=== PATIENT | male | born 1935 | race Caucasian/White ===

== ENCOUNTER 2017-06-06 17:51 | Observation (INO) | payer OTHER ==
[~2017-06-06] VITALS: Ht 160 cm; Wt 85.7 kg
[2017-06-06 18:28] LABS: HEMATOCRIT 34.6 % (38.0-50.0); HEMOGLOBIN 11.4 G/DL (12.5-16.6); MCH 30.5 PG (29.0-34.0); MCHC 32.9 G/DL (30.0-36.0); MCV 92.5 FL (86-99); PLATELET COUNT 202 K/uL (156-360); RBC DIS.WIDTH-CV 18.9 % (11.8-14.6); RBC DIS.WIDTH-SD 64.2 % (39-53); RED BLOOD COUNT 3.74 M/uL (4.00-5.50); WHITE BLOOD COUNT 7.3 K/uL (4.1-10.2)
[2017-06-06 18:51] LABS: TROP-I INTERPRETATION NEGATIVE; TROPONIN-I 0.02 ng/mL (0.0-0.30)
[2017-06-06 18:58] LABS: CHLORIDE 106 MEQ/L (99-109); CREATININE 1.5 MG/DL (0.6-1.3); GFR ESTIMATE (CALCULATED) 48 mL/min/ (58.99-99999); GLUCOSE 148 mg/dL (70-99); POTASSIUM 4.3 MEQ/L (3.7-5.4); SODIUM 144 MEQ/L (136-147); UREA NITROGEN (BUN) 21 mg/dL (9-23)
[2017-06-07 00:23] LABS: APPEARANCE SL.HAZY ((CLEAR)); BILIRUBIN NEGATIVE; BLOOD NEGATIVE; COLOR YELLOW ((YELLOW)); GLUCOSE (STRIP) NEGATIVE; KETONES NEGATIVE; LEUKOCYTES NEGATIVE; NITRITE NEGATIVE; PROTEIN (STRIP) NEGATIVE; SPECIFIC GRAVITY 1.017 (1.000-1.030); UROBILINOGEN 0.2 MG/DL (0.2-1.0)
[2017-06-07 00:34] LABS: BACTERIA RARE /HPF; EPITHELIAL CELLS RARE /HPF; HYALINE CASTS 0-5 /LPF; MUCUS TRACE /LPF; RED BLOOD CELLS 0-5 /HPF (0-5); UCUL ADDED? NO; WHITE BLOOD CELLS 0-5 /HPF (0-5)
[2017-06-07 00:42] LABS: MAGNESIUM 1.8 mg/dL (1.3-2.7)
[2017-06-07 00:47] LABS: PHOSPHORUS 3.5 mg/dL (2.5-4.9)
[2017-06-07 00:52] LABS: TROP-I INTERPRETATION NEGATIVE; TROPONIN-I 0.03 ng/mL (0.0-0.30)
[2017-06-07 01:15] VITALS: BP 163/82
[2017-06-07 07:10] LABS: BASOPHIL (%) 0.5 % (0-1); EOSINOPHIL (%) 4.4 % (0-5); EOSINOPHIL COUNT 0.3 K/uL (0-0.3); HEMATOCRIT 35.4 % (38.0-50.0); HEMOGLOBIN 11.4 G/DL (12.5-16.6); IMMATURE GRANULOCYTE (%) 0.5 % (0.0-0.7); LYMPHOCYTE (%) 11.8 % (15-42); LYMPHOCYTE COUNT 0.7 K/uL (1.0-2.8); MCH 30.2 PG (29.0-34.0); MCHC 32.2 G/DL (30.0-36.0); MCV 93.9 FL (86-99); MONOCYTE (%) 8.8 % (3-12); MONOCYTE COUNT 0.5 K/uL (0-0.8); NEUTROPHIL COUNT 4.4 K/uL (1.8-6.4); PLATELET COUNT 191 K/uL (156-360); RBC DIS.WIDTH-CV 19.3 % (11.8-14.6); RBC DIS.WIDTH-SD 67.1 % (39-53); RED BLOOD COUNT 3.77 M/uL (4.00-5.50); WHITE BLOOD COUNT 5.9 K/uL (4.1-10.2)
[2017-06-07 07:29] LABS: TROP-I INTERPRETATION NEGATIVE; TROPONIN-I 0.04 ng/mL (0.0-0.30)
[2017-06-07 07:31] LABS: ALBUMIN 3.3 G/DL (3.2-4.8); ALKALINE PHOSPHATASE 266 IU/L (3-129); ALT (GPT) 394 IU/L (3-49); AST (GOT) 234 IU/L (2-34); CHLORIDE 110 MEQ/L (99-109); CREATININE 1.3 MG/DL (0.6-1.3); DIRECT BILIRUBIN 0.2 mg/dL (0.0-0.3); GFR ESTIMATE (CALCULATED) 56 mL/min/ (58.99-99999); POTASSIUM 4.2 MEQ/L (3.7-5.4); SODIUM 141 MEQ/L (136-147); TOTAL BILIRUBIN 0.5 MG/DL (0.0-1.0); TOTAL PROTEIN 5.6 G/DL (6.4-8.3); UREA NITROGEN (BUN) 19 mg/dL (9-23)
[2017-06-07 07:43] LABS: GLUCOSE 106 mg/dL (70-99)
[2017-06-07 07:46] VITALS: BP 183/84
[2017-06-07 10:15] VITALS: BP 138/63
[2017-06-07 12:10] VITALS: BP 141/68
[2017-06-07 17:24] VITALS: BP 148/75
[2017-06-08 00:54] VITALS: BP 179/83
[2017-06-08 03:18] VITALS: BP 146/65
[2017-06-08 08:04] VITALS: BP 167/76
[2017-06-08] MEDS ORDERED: TYLENOL REGULA325 MG PO (09:48)
[2017-06-08] MEDS ORDERED: NORVASC2.5 MG PO (09:49)
[2017-06-08] MEDS ORDERED: ATORVASTATIN CA40 MG PO (09:50)
[2017-06-08] MEDS ORDERED: ASPERCREME1 EACH TP (09:50)
[2017-06-08] MEDS ORDERED: TUMS500 MG PO (09:51)
[2017-06-08] MEDS ORDERED: PLAVIX75 MG PO (09:52)
[2017-06-08] MEDS ORDERED: CLARITIN,ALAVAR10 MG PO (09:52)
[2017-06-08] MEDS ORDERED: FOLIC ACID1 MG PO (09:53)
[2017-06-08] MEDS ORDERED: IRON325 M1 PO (09:53)
[2017-06-08] MEDS ORDERED: METOPROLOL SUCC25 MG PO (09:54)
[2017-06-08] MEDS ORDERED: FUROSEMIDE20 MG PO (09:54)
[2017-06-08] MEDS ORDERED: MILK OF MAGN PO (09:57)
[2017-06-08] MEDS ORDERED: MIRTAZAPINE7.5 MG PO (09:57)
[2017-06-08] MEDS ORDERED: ENDOCET 5-3251 EACH PO (11:21)
[2017-06-08] MEDS ORDERED: SENEXON-S TABL1 EACH PO (11:28)
[2017-06-08 11:44] VITALS: BP 141/75
[2017-06-08 12:28] VITALS: BP 121/66
== END 2017-06-08 13:19 ==
LOC: EME 17:51 → EDOF 21:34 → 5WEST 21:34 → EDOF 21:34 → ENRESERV 21:37 → 5WEST 06-07 01:13
PROVIDERS: Hospitalist
DX: S22.42XA Multiple fractures of ribs, left side, initial encounter for closed fracture (principal); J90 Pleural effusion, not elsewhere classified; J98.11 Atelectasis; R94.31 Abnormal electrocardiogram [ECG] [EKG]; I25.10 Atherosclerotic heart disease of native coronary artery without angina pectoris; I25.2 Old myocardial infarction; I65.23 Occlusion and stenosis of bilateral carotid arteries; I69.398 Other sequelae of cerebral infarction; G31.89 Other specified degenerative diseases of nervous system; F02.80 Dementia in other diseases classified elsewhere, unspecified severity, without behavioral disturbance, psychotic disturbance, mood disturbance, and anxiety; W19.XXXA Unspecified fall, initial encounter; M48.02 Spinal stenosis, cervical region; I12.9 Hypertensive chronic kidney disease with stage 1 through stage 4 chronic kidney disease, or unspecified chronic kidney disease; N18.9 Chronic kidney disease, unspecified; D64.9 Anemia, unspecified; I51.7 Cardiomegaly; K44.9 Diaphragmatic hernia without obstruction or gangrene; Z86.19 Personal history of other infectious and parasitic diseases; R53.1 Weakness; M79.605 Pain in left leg; Z88.6 Allergy status to analgesic agent
CPT/HCPCS: 70450; 71045; 71046; 71250; 72125; 73502; 80048; 80076; 81003; 83735; 84100; 84484; 85025; 85027; 93005; 93880; 99202; 99281; 99285; G0378; G8978 GP CK; G8979 GP CI; G8980 GP CK; G8987 CK; G8988 GO CJ; G8989 GO CK; J0360; J1644; J1885

== ENCOUNTER 2017-08-10 21:06 | Emergency (ER) | payer OTHER ==
[~2017-08-10] VITALS: Ht 172.7 cm; Wt 77.0 kg
[~2017-08-10 21:06] MED LIST: ASPERCREME1 EACH TP; ATORVASTATIN CA40 MG PO; CLARITIN,ALAVAR10 MG PO; ENDOCET 5-3251 EACH PO; FOLIC ACID1 MG PO; FUROSEMIDE20 MG PO; IRON325 M1 PO; METOPROLOL SUCC25 MG PO; MILK OF MAGN PO; MIRTAZAPINE7.5 MG PO; NORVASC2.5 MG PO; PLAVIX75 MG PO; SENEXON-S TABL1 EACH PO; TUMS500 MG PO; TYLENOL REGULA325 MG PO
[2017-08-10 21:58] LABS: HEMATOCRIT 33.6 % (38.0-50.0); HEMOGLOBIN 11.3 G/DL (12.5-16.6); MCH 31.9 PG (29.0-34.0); MCHC 33.6 G/DL (30.0-36.0); MCV 94.9 FL (86-99); PLATELET COUNT 197 K/uL (156-360); RBC DIS.WIDTH-CV 14.1 % (11.8-14.6); RBC DIS.WIDTH-SD 49.2 % (39-53); RED BLOOD COUNT 3.54 M/uL (4.00-5.50)
[2017-08-10 22:00] LABS: IMM.PLATELET FRACTION 3.6 (1-7)
[2017-08-10 22:22] LABS: CHLORIDE 108 mEq/L (99-109); POTASSIUM 4.4 mEq/L (3.7-5.4); SODIUM 139 mEq/L (136-147)
[2017-08-10 22:24] LABS: GLUCOSE 139 mg/dL (70-99)
[2017-08-10 22:28] LABS: CREATININE 1.1 mg/dL (0.6-1.3); GFR ESTIMATE (CALCULATED) > 59 mL/min/ (58.99-99999)
[2017-08-10 22:29] LABS: UREA NITROGEN (BUN) 18 mg/dL (9-23)
[2017-08-10 22:30] LABS: TROP-I INTERPRETATION NEGATIVE; TROPONIN-I 0.03 ng/mL (0.0-0.30)
[2017-08-10 22:35] LABS: APPEARANCE CLEAR ((CLEAR)); BILIRUBIN NEGATIVE; BLOOD SMALL; COLOR YELLOW ((YELLOW)); GLUCOSE (STRIP) NEGATIVE; KETONES NEGATIVE; LEUKOCYTES NEGATIVE; NITRITE NEGATIVE; PROTEIN (STRIP) NEGATIVE; SPECIFIC GRAVITY 1.016 (1.000-1.030); UROBILINOGEN 0.2 MG/DL (0.2-1.0)
[2017-08-10 23:08] LABS: BACTERIA NONE SEEN /HPF; EPITHELIAL CELLS NONE SEEN /HPF; MUCUS TRACE /LPF; RED BLOOD CELLS 0-5 /HPF (0-5); UCUL ADDED? NO; WHITE BLOOD CELLS 0-5 /HPF (0-5)
[2017-08-11 02:30] VITALS: BP 135/73
== END 2017-08-11 02:37 | disposition home or self-care (01) ==
LOC: EME → EDBD 21:06 → EME 21:06
PROVIDERS: Emergency Medicine
DX: I69.354 Hemiplegia and hemiparesis following cerebral infarction affecting left non-dominant side (principal); W19.XXXA Unspecified fall, initial encounter; Y92.199 Unspecified place in other specified residential institution as the place of occurrence of the external cause; F03.90 Unspecified dementia, unspecified severity, without behavioral disturbance, psychotic disturbance, mood disturbance, and anxiety; K21.9 Gastro-esophageal reflux disease without esophagitis; I25.2 Old myocardial infarction; Z88.6 Allergy status to analgesic agent
CPT/HCPCS: 70450; 71046; 80048; 81003; 84484; 85027; 93005; 99281; 99284